=== PATIENT | male | born 1995 | race Hispanic/Latino ===

== ENCOUNTER 2018-01-11 11:45 | Emergency (ER) | payer SELFPAY ==
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
== END 2018-01-11 12:20 | disposition home or self-care (01) ==
LOC: ER 11:45
DX: S16.1XXA Strain of muscle, fascia and tendon at neck level, initial encounter (principal); F17.210 Nicotine dependence, cigarettes, uncomplicated; V43.02XA Car driver injured in collision with other type car in nontraffic accident, initial encounter; Y93.89 Activity, other specified; Y92.9 Unspecified place or not applicable; Y99.9 Unspecified external cause status
CPT/HCPCS: 99281

== ENCOUNTER 2018-01-12 11:34 | Emergency (ER) | payer SELFPAY ==
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
== END 2018-01-12 13:20 | disposition home or self-care (01) ==
LOC: ER 11:34
DX: S39.011A Strain of muscle, fascia and tendon of abdomen, initial encounter (principal); S33.9XXA Sprain of unspecified parts of lumbar spine and pelvis, initial encounter; X50.9XXA Other and unspecified overexertion or strenuous movements or postures, initial encounter; Y92.69 Other specified industrial and construction area as the place of occurrence of the external cause; F17.210 Nicotine dependence, cigarettes, uncomplicated
CPT/HCPCS: 99282